=== PATIENT | male | born 1965 | race Caucasian/White ===

== ENCOUNTER 2017-04-04 19:39 | Emergency (ER) | payer MEDICAID ==
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
[2017-04-04 21:13] LABS: % BASOPHILS 0.9 % (0.0-2.0); % EOSINOPHILS 2.2 % (0.0-5.0); % LYMPHOCYTES 21.9 % (20.0-50.0); % MONOCYTES 8.8 % (2.0-10.0); % NEUTROPHILS 66.2 % (40.0-80.0); BASOPHILE ABSOLUTE 0.1 Th/cumm (0-0.2); EOSINOPHILE ABSOLUTE 0.1 Th/cmm (0.1-0.4); HEMOGLOBIN 13.1 gm/dL (12-16); LYMPHOCYTE ABSOLUTE 1.2 Th/cmm (1.5-3.0); MEAN CELL VOLUME 90.5 fl (80-99); MEAN CORPUSCULAR HEMOGLOBIN 30.5 pg (26.0-30.0); MEAN CORPUSCULAR HGB CONC 33.7 pg (28.0-36.0); MONOCYTE ABSOLUTE 0.5 Th/cmm (0.3-1.0); NEUTROPHILE ABSOLUTE 3.7 Th/cmm (1.8-8.0); PLATELET COUNT 203 Th/cmm (150-400); RED CELL DISTRIBUTION WIDTH 13.1 % (11.5-20.0); WHITE BLOOD COUNT 5.6 Th/cmm (4.8-10.8)
[2017-04-04 21:15] LABS: HEMATOCRIT 38.9 % (41.0-60)
[2017-04-04 21:28] LABS: ALB/GLOB RATIO 1.4 (1.0-1.8); ALBUMIN 3.6 gm/dL (4.2-5.5); ALKALINE PHOSPHATASE 55 U/L (34-104); ANION GAP 9.4 (7.0-16.0); BILIRUBIN,TOTAL 0.4 mg/dL (0.3-1.0); BUN - UREA NITROGEN 22 mg/dL (7-25); CALCIUM SERUM 8.8 mg/dL (8.6-10.3); CARBON DIOXIDE 24.1 mEq/L (21.0-31.0); CHLORIDE 104 mEq/L (98-107); CREATININE - SERUM 1.3 mg/dL (0.7-1.3); GFR AFRICAN-AMERICAN > 60.0 ml/min (>90); GFR NON AFRICAN-AMERICAN > 60.0 ml/min; GLUCOSE 208 mg/dL (70-105); POTASSIUM SERUM 3.5 mEq/L (3.5-5.1); SGOT 14 U/L (13-39); SGPT/ALT 15 U/L (7-52); SODIUM SERUM 134 mEq/L (136-145); TOTAL PROTEIN,SERUM 6.1 gm/dL (6.0-8.3)
[2017-04-04 21:46] LABS: A1C % 5.8 % (4.0-6.0)
--- NOTE | 2017-04-05 08:20 | Diagnostic Imaging Report ---
Exam: Extracranial lumbar spine. HISTORY: Low back pain. Findings: Multiple views of lumbar sacral spine was reviewed. The study demonstrates a degenerative changes of lumbar sacral spine with mild narrowing of the L4-L5 L5-S1 intervertebral disc space. There is evidence for a 1 mm retrolisthesis of L5 lumbar vertebra. There is no evidence of prevertebral soft tissue swelling. The vertebral bodies of normal height. The visualized pedicles are intact. No prevertebral soft tissue swelling is noted. IMPRESSION: 1. Degenerative narrowing at L4-L5 L5-S1 intervertebral disc space 2 1-mm retrolisthesis of L5 lumbar vertebra. Clinically indicated MRI examination might be helpful.
== END 2017-04-04 23:26 | disposition home or self-care (01) ==
LOC: ER 19:39
DX: M54.16 Radiculopathy, lumbar region (principal)
CPT/HCPCS: 99291; 96372; 72100; 36415; 85025; 83036; 80053; J1885; Z7502

== ENCOUNTER 2018-10-25 15:28 | Emergency (ER) | payer MEDICAID ==
--- NOTE | 2018-10-25 16:14 | ED Physician Chart ---
ED Chief Complaint/HPI - Patient Information Date Seen:: 10/25/18 Time Seen:: 16:10 Chief Complaint:: abd pain History of Present Illness:: 53 yr old male with abd pain today from top to bottom no nvd or constipation no fever headache or dizziness apprarently uses meth and did some today has been using meth since age 18 Allergies:: Allergies Allergy/AdvReac Type Severity Reaction Status Date / Time No Known Allergies Allergy Verified 04/04/17 19:55 Vitals:: Vital Signs - 8 hr 10/25/18 15:39 Temp 96.7 F HR 76 RR 18 BP 168/107 O2 Sat % 99 ED Review of Systems - Review of Systems General/Constitutional: No fever, No chills, No weight loss, No weakness, No diaphoresis, No edema, No loss of appetite Skin: No skin lesions, No rash, No bruising Head: No headache, No light-headedness Eyes: No loss of vision, No pain, No diplopia ENT: No earache, No nasal drainage, No sore throat, No tinnitus Neck: No neck pain, No swelling, No thyromegaly, No stiffness, No mass noted Cardio Vascular: No chest pain, No palpitations, No PND, No orthopnea, No edema Pulmonary: No SOB, No cough, No sputum, No wheezing GI: Pain G/U: No dysuria, No frequency, No hematuria Musculoskeletal: No bone or joint pain, No back pain, No muscle pain Endocrine: No polyuria, No polydipsia Psychiatric: No prior psych history, No depression, No anxiety, No suicidal ideation Hematopoietic: No bruising, No lymphadenopathy Allergic/Immuno: No urticaria, No angioedema Neurological: No syncope, No focal symptoms, No weakness, No paresthesia, No headache, No seizure, No dizziness, No confusion, No vertigo ED Past Medical History - Past Medical History Past Medical History: No significant medical hx Family Medical History - Family Member Father History Unknown: Yes Ethnicity: Non- Living Status: Hx Family Cancer: Yes ED Physical Exam - Physical Examination General/Constitutional: Awake, Well-developed, well-nourished, Alert, No distress, GCS 15, Non-toxic appearing, Ambulatory Head: Atraumatic Eyes: Lids, conjuctiva normal, PERRL, EOMI Skin: Nl inspection, No rash, No skin lesions, No ecchymosis, Well hydrated, No lymphadenopathy ENMT: External ears, nose nl, Nasal exam nl, Lips, teeth, gums nl Neck: Nontender, Full ROM w/o pain, No JVD, No nuchal rigidity, No bruit, No mass, No stridor Respiratory: Nl effort/Exclusion, Clear to Auscultation, No Wheeze/Rhonchi/Rales Cardio Vascular: RRR, No murmur, gallop, rubs, NL S1 S2 Other GI comments:: abd tenderness throughout no perioteneal signs : No CVA tenderness Extremities: No tenderness or effusion, Full ROM, normal strength in all extremities, No edema, Normal digits & nails Neuro/Psych: Alert/oriented, DTR's symmetric, Normal sensory exam, Normal motor strength, Judgement/insight normal, Mood normal, Normal gait, No focal deficits Misc: Normal back, No paraspinal tenderness ED Assessment - Assessment General Assessment: abd pain ED Septic Shock - . Is Septic Shock (SBP<90, OR Lactate>4 mmol\L) present?: No - <6hrs of presentation: Vital Signs: Vital Signs - 8 hr 10/25/18 15:39 Temp 96.7 F HR 76 RR 18 BP 168/107 O2 Sat % 99 ED Reassessment (Disposition) - Reassessment Reassessment:: abd pain - Diagnosis Diagnosis:: abd pain - Patient Disposition Condition at Disposition:: Stable
[2018-10-25 16:54] LABS: URINE SOURCE CLEAN C
[2018-10-25 16:56] LABS: ALB/GLOB RATIO 1.2 (1.0-1.8); ALBUMIN 3.9 gm/dL (4.2-5.5); ALKALINE PHOSPHATASE 74 U/L (34-104); AMYLASE SERUM 26 U/L (29-103); ANION GAP 10.9 (7.0-16.0); BILIRUBIN,TOTAL 0.5 mg/dL (0.3-1.0); BUN - UREA NITROGEN 16 mg/dL (7-25); CALCIUM SERUM 9.2 mg/dL (8.6-10.3); CARBON DIOXIDE 28.7 mEq/L (21.0-31.0); CHLORIDE 98 mEq/L (98-107); CREATININE - SERUM 1.1 mg/dL (0.7-1.3); CREATININE KINASE 115 U/L (30-223); GFR AFRICAN-AMERICAN > 60.0 ml/min (>90); GFR NON AFRICAN-AMERICAN > 60.0 ml/min; GLUCOSE 106 mg/dL (70-105); LIPASE 19 U/L (11-82); POTASSIUM SERUM 5.6 mEq/L (3.5-5.1); SGOT 19 U/L (13-39); SGPT/ALT 14 U/L (7-52); SODIUM SERUM 132 mEq/L (136-145); TOTAL PROTEIN,SERUM 7.1 gm/dL (6.0-8.3)
[2018-10-25 16:58] LABS: URINE BILIRUBIN NEGATIVE (NEGATIVE); URINE BLOOD NEGATIVE (NEGATIVE); URINE GLUCOSE (UA) NEGATIVE (NEGATIVE); URINE KETONE NEGATIVE (NEGATIVE); URINE LEUKOCYTE ESTERASE NEGATIVE (NEGATIVE); URINE NITRATE NEGATIVE (NEGATIVE); URINE PROTEIN NEGATIVE (NEGATIVE); URINE UROBILINOGEN 0.2 E.U./dL (0.2 - 1.0)
[2018-10-25 17:00] LABS: TROP I 0.01 ng/mL (0.01-0.05)
[2018-10-25 17:06] LABS: AMPHETAMINE URINE POSITIVE (NEGATIVE)
[2018-10-25 17:07] LABS: BARBITURATES URINE NEGATIVE (NEGATIVE); BENZODIAZEPINES QUAL URINE NEGATIVE (NEGATIVE); CANNABINOID THC NEGATIVE (NEGATIVE); COCAINE METABOLITE QUAL URINE NEGATIVE (NEGATIVE); METHADONE URINE NEGATIVE (NEGATIVE); METHAMPHETAMINES QUAL URINE POSITIVE (NEGATIVE); OPIATES (MORPHINE) QUAL. URINE NEGATIVE (NEGATIVE); PHENCYCLIDINE (PCP) URINE NEGATIVE (NEGATIVE); TRICYCLICS (TCA) QUAL. URINE NEGATIVE (NEGATIVE)
[2018-10-25 17:10] LABS: URINE BACTERIA FEW /hpf (NONE SEEN); URINE CLARITY CLEAR (CLEAR); URINE COLOR YELLOW; URINE EPITHELIAL CELLS NONE SEEN /lpf (FEW); URINE MICROSCOPIC INDICATED? YES; URINE RBC NONE SEEN /hpf (0-5); URINE WBC 0-2 /hpf (0-5)
[2018-10-25] MEDS ORDERED: Sodium Chloride 0.9% 1,000 ML IV ONE (18:15)
[2018-10-25 18:40] LABS: % LYMPHOCYTES 25.3 % (20.0-50.0); % MONOCYTES 8.4 % (2.0-10.0); % NEUTROPHILS 64.1 % (40.0-80.0); HEMATOCRIT 42.9 % (41.0-60); HEMOGLOBIN 14.4 gm/dL (12-16); MEAN CELL VOLUME 90.1 fl (80-99); MEAN CORPUSCULAR HEMOGLOBIN 30.3 pg (26.0-30.0); MEAN CORPUSCULAR HGB CONC 33.6 pg (28.0-36.0); PLATELET COUNT 250 Th/cmm (150-400); RED BLOOD COUNT 4.76 Mil/cmm (4.30-5.70); WHITE BLOOD COUNT 5.2 Th/cmm (4.8-10.8)
[2018-10-25 18:41] LABS: % BASOPHILS 0.6 % (0.0-2.0); % EOSINOPHILS 1.6 % (0.0-5.0); EOSINOPHILE ABSOLUTE 0.1 Th/cmm (0.1-0.4); LYMPHOCYTE ABSOLUTE 1.3 Th/cmm (1.5-3.0); MONOCYTE ABSOLUTE 0.4 Th/cmm (0.3-1.0); NEUTROPHILE ABSOLUTE 3.4 Th/cmm (1.8-8.0)
--- NOTE | 2018-10-26 08:28 | Diagnostic Imaging Report ---
CT abdomen and pelvis without intravenous contrast Indication: Abdominal pain Comparison: None, Technique: Axial images were obtained from the lung bases to the bilateral proximal femurs without IV contrast. Coronal reconstructions were made. total DLP: 405, CTDI8.7 FINDINGS: Hypoventilatory and atelectatic changes of the lung bases are seen with minimal bibasilar passive atelectasis. There is elevation of the right hemidiaphragm. Assessment of the solid organs is limited due to lack of IV contrast. Exam is also limited due to lack of intra-abdominal body fat. No focal hepatic lesions. No focal splenic or pancreatic lesions. No focal adrenal images. No evidence of hydronephrosis or nephrolithiasis. Distended urinary bladder is noted. Mildly prominent prostate gland seen with prosthetic calcifications. There is distal fecal impaction mass effect upon the prostate gland and adjacent urinary bladder. There is a copious amount of stool throughout the colon. Multiple fluid-filled loops of small bowel are noted. Appendix is not well-visualized, however there are no secondary signs suggest acute appendicitis. No free air free fluid. Mildly tortuous aorta is. Advanced degenerative changes of the spine are noted with mild scoliosis. Degenerative changes are greatest along the lower lumbar spine. Postsurgical changes of the left lower anterior abdominal pelvic wall region are noted likely due to previous hernia repair. There are multiple age-indeterminate right transverse process fractures possibly subacute extending from L2 through L4. There is 2 mm anterolisthesis of L2 on L3 likely due to facet arthropathy. Bones cyst measuring 7 mm of the left femoral head/neck junction is noted. IMPRESSION: Age-indeterminate right-sided transverse process fractures extending from L2 through L4 possibly subacute. Please correlate with clinical findings and exams. The greatest displacement is seen at L3 with 2.5 mm displacement at this level. Copious stool throughout the colon with distal fecal impaction. Correlate clinically for constipation. Multiple fluid-filled loops of small bowel nonspecific however inflammatory process/enteritis cannot be excluded. Distended urinary bladder. Mildly prominent prostate gland. Correlate clinically. Degenerative changes of the spine.
== END 2018-10-25 19:50 | disposition home or self-care (01) ==
LOC: ER 15:28
DX: R10.9 Unspecified abdominal pain (principal)
CPT/HCPCS: 36415-UA; 80053-TC; 80307; 81001-TC; 82150-TC; 82550-TC; 83605; 83690-TC; 84484-TC; 85025-TC; 93005; J7030